=== PATIENT | female | born 1970 | race Caucasian/White ===

== ENCOUNTER 2017-08-06 06:17 | Day surgery (SDC) | payer OTHER ==
[~2017-08-06 06:17] MED LIST: CEFAZOLIN 2 GM/50 ML (PMX) 50 ML IVPB; LACTATED RINGER'S 1,000 ML (ENTER RATE) IV*
[2017-08-06] MEDS ORDERED: FENTAnyl 50 MCG/ML VIAL (07:56)
[2017-08-06] MEDS ORDERED: MIDAZOLAM 1 MG/ML 2 ML INJ (07:56)
[2017-08-06] MEDS ORDERED: ONDANSETRON 4 MG INJ (08:53)
[2017-08-06] MEDS ORDERED: NEOSTIGMINE 3 MG/3 ML SYRINGE (08:57)
[2017-08-06] MEDS ORDERED: CEFAZOLIN 1 GM INJ (08:57)
[2017-08-06] MEDS ORDERED: LIDOCAINE 2% (SDV) 5 ML INJ (08:57)
[2017-08-06] MEDS ORDERED: PROPOFOL 20 ML (08:57)
[2017-08-06] MEDS ORDERED: GLYCOPYRROLATE 1 MG INJ (08:57)
[2017-08-06] MEDS: morphine 4 MG/ML VIAL IV (11:06)
[2017-08-06] MEDS ORDERED: DIPHENHYDRAMINE 50 MG INJ IV (11:30)
[2017-08-06] MEDS ORDERED: MEPERIDINE 25 MG INJ IV (11:30)
[2017-08-06] MEDS ORDERED: ONDANSETRON 4 MG INJ IV (11:30)
[2017-08-06] MEDS ORDERED: FENTAnyl 50 MCG/ML VIAL IV (11:30)
[2017-08-06] MEDS ORDERED: HYDROmorphONE (0.2 MG/ML) 10ML SYG IV ×2 (11:30)
[2017-08-06] MEDS ORDERED: HYDROCODONE/APAP (5/325) TAB PO ×2 (11:30)
== END 2017-08-06 11:40 | disposition home or self-care (01) ==
LOC: SDS 06:17
DX: Z30.2 Encounter for sterilization (principal); E66.9 Obesity, unspecified; Z68.33 Body mass index [BMI] 33.0-33.9, adult
CPT/HCPCS: 58670; 93005